=== PATIENT | male | born 1980 | race American Indian/Alaskan Native ===

== ENCOUNTER 2016-09-18 09:27 | Emergency (ER) | payer MEDICARE ==
[2016-09-18 09:38] VITALS: BP 146/85
== END 2016-09-18 12:31 | disposition left against medical advice (07) ==
LOC: ED 09:27
DX: J45.909 Unspecified asthma, uncomplicated (principal); M79.642 Pain in left hand; Z53.21 Procedure and treatment not carried out due to patient leaving prior to being seen by health care provider